=== PATIENT | female | born 2000 | race African-American/Black ===

== ENCOUNTER 2025-02-27 16:02 | Emergency (ER) | payer BC ==
[2025-02-27] MEDS ORDERED: Ibuprofen 200 MG TAB ONE (16:46)
[2025-02-27] MEDS ORDERED: Dicyclomine 20 MG TAB ONE (16:48)
[2025-02-27 16:51] LABS: Glucose, Urine (Dipstick) Negative (Negative); Leukocyte Negative (Negative); Protein, Urine (Dipstick) Negative (Neg-Trace); Specific Gravity, Urine 1.015 (1.005-1.030)
[2025-02-27 16:52] LABS: Pregnancy Test - Urine (BHCG) Negative (Negative); Pregu Control Background? CLEAR/WHITE (CLR/WHITE); Pregu Control Bar Appear? YES (CONTROL BAR)
[2025-02-27 17:06] LABS: CAUTI Indications for Culture Alt mental st,lethar; RBC/HPF 0-3 HPF (0-3); WBC/HPF 0-3 HPF (0-3)
[2025-02-27 17:07] LABS: Bacteria/HPF 2+ HPF (None Seen); Mucous/LPF 1+ LPF (<2+)
[2025-02-27 17:11] LABS: Urine Culture Reflex No No
== END 2025-02-27 17:20 | disposition home or self-care (01) ==
LOC: CSHERS 16:02
DX: R10.31 Right lower quadrant pain (principal); Z55.6 Problems related to health literacy
CPT/HCPCS: 36416; 81001; 81025; 93005; 99284; Q0162